=== PATIENT | male | born 1960 | race Caucasian/White ===

== ENCOUNTER → 2017-09-10 | Outpatient (CLI) | payer MEDICARE ==
[~2017-09-10] MED LIST: ABILIFY20 MG PO; AMBIEN 10MG TAB10 MG PO; CEFDINIR300 M1 PO; CHLORDIAZEPOXID PO; DARVOCET-N 1001 EACH PO; ELAVIL GENERIC10 MG PO; FLUOXETINE20 MG PO; KEFLEX 500MG.500 MG PO; LASIX 40MG. TAB40 MG PO; LEVAQUIN 750 M750 MG PO; MOBIC7.5 MG PO; MORPHINE PO; OMNICEF 300 MG300 MG PO; OPANA ER10 MG PO; PERCOCET 10 MG1 EACH PO; PREDNISONE 20MG20 MG PO; PRILOSEC20 M1; PROZAC 20MG CAP20 MG; SULFAMETHOXAZOL1 TA6 PO; SYMBICORT1 AE1 IH; XANAX 1MG TABLET1 MG PO; XANAX2 MG PO; ZANAFLEX 2MG TAB2 MG PO
--- NOTE | 2017-09-10 21:14 | RADIOLOGY REPORT PS360 ---
HAND-RT 3 VIEWS HISTORY: Post traumatic pain and swelling INJURY ORDERING PHYSICIAN: Matti Sanchez MD PATIENT AGE: 57 years COMPARISON: None FINDINGS: There is a 4 mm calcific density along the anterior aspect of the PIP joint of the fourth digit consistent with an avulsion fracture which may be from the proximal aspect of the middle phalanx. No other significant anomalies are evident. IMPRESSION: Minimally displaced avulsion fracture at the PIP joint of the fourth digit
== END ==
LOC: RAD 18:31
DX: G89.11 Acute pain due to trauma (principal)